=== PATIENT | female | born 1955 | race Caucasian/White ===

== ENCOUNTER → 2018-07-20 | Outpatient (CLI) | payer BC ==
--- NOTE | 2018-07-20 08:17 | RAD ---
EXAM: Chest, 2 views. HISTORY: Respiratory infection. COMPARISON: None. FINDINGS: 2 views the chest are obtained. There is no infiltrate, pleural effusion or pneumothorax. The heart is normal in size. There are suspected bilateral lower lobe atelectasis. IMPRESSION: Suspected bilateral lower lobe atelectasis. No consolidated infiltrate. Electronically signed by: Amber Mcadams MD (07/20/2018 8:14 AM) [facility]
== END | disposition home or self-care (01) ==
LOC: PMG 07:43
PROVIDERS: ATTEND Physician Assistant Medical
DX: J06.9 Acute upper respiratory infection, unspecified (principal)
CPT/HCPCS: 71046

== ENCOUNTER → 2018-08-24 | Outpatient (CLI) | payer BC ==
--- NOTE | 2018-08-24 16:56 | CARD ---
MR#: [id number] Date of Study: 08/24/2018 Ordering Physician: TYSON CARRION, Referring Physician: TYSON CARRION, Tech: Celine Payne APPROVED REPORT EXAM: Two-dimensional and M-mode echocardiogram with Doppler and color Doppler. Other Information Quality : AverageHR: 55bpm Technically limited study due to body habitus. INDICATION Congestive Heart Failure RISK FACTORS Hypertension Hyperlipidemia Diabetes 2D DIMENSIONS RVDd3.5 (2.9-3.5cm)Left Atrium(2D)4.6 (1.6-4.0cm) IVSd1.6 (0.7-1.1cm)Aortic Root(2D)3.4 (2.0-3.7cm) LVDd6.2 (3.9-5.9cm)LVOT Diameter2.3 (1.8-2.4cm) PWd1.5 (0.7-1.1cm)LVDs4.0 (2.5-4.0cm) FS (%) 35.7 %SV123.9 ml LVEF(%)64.2 (>50%) Aortic Valve AoV Peak Luis Manuel.179.9cm/sAoV VTI46.7cm AO Peak GR.12.9mmHgLVOT Peak Luis Manuel.130.6cm/s LVOT VTI 29.52cmAO Mean GR.8mmHg LONI (VMAX)2.01kv7FQJ (VTI)2.56cm2 Mitral Valve MV E Buynteqx39.3cm/sMV DECEL SYTF804hj MV A Urmgjprj644.2cm/sE/A Ratio0.7 Pulmonary Valve PV Peak Wibcjczg058.3cm/sPV Peak Grad.5mmHg Tricuspid Valve TR P. Vjhqqoyb476mx/sRAP TGBZFHPT8woZa TR Peak Gr.41icTkSBLL59ivEf Pulmonary Vein S1 Dfgnshni28.7cm/sD2 Ieqeohtv83.2cm/s LEFT VENTRICLE The left ventricle is normal size. There is moderate concentric left ventricular hypertrophy. The lef t ventricular systolic function is normal and the ejection fraction is within normal range. The Eject ion Fraction is 50%. There is normal LV segmental wall motion. Transmitral Doppler flow pattern is Gr gucci I-abnormal relaxation pattern. RIGHT VENTRICLE The right ventricle is normal size. The right ventricle is mildly hypertrophied. The right ventricula r systolic function is normal. ATRIA The left atrium is borderline dilated. The right atrium is borderline dilated. The interatrial septum is intact with no evidence for an atrial septal defect or patent foramen ovale as noted on 2-D or Do ppler imaging. AORTIC VALVE The aortic valve is normal in structure and function. Doppler and Color Flow revealed no significant aortic regurgitation. There is no significant aortic valvular stenosis. MITRAL VALVE The mitral valve is normal in structure and function. There is no evidence of mitral valve prolapse. There is no mitral valve stenosis. Doppler and Color-flow revealed trace mitral regurgitation. TRICUSPID VALVE The tricuspid valve is not well visualized. Doppler and Color Flow revealed no tricuspid valve regurg itation noted. There is no tricuspid valve stenosis. PULMONIC VALVE The pulmonic valve is not well visualized. Doppler and Color Flow revealed trace pulmonic valvular re gurgitation. GREAT VESSELS The aortic root is normal in size. The IVC is normal in size and collapses >50% with inspiration. PERICARDIAL EFFUSION There is no evidence of significant pericardial effusion. Critical Notification Critical Value: No <Conclusion> The left ventricular systolic function is normal and the ejection fraction is within normal range. Th e Ejection Fraction is 50%. There is normal LV segmental wall motion. Signed by : Melecio Ruiz, Electronically Approved : 08/24/2018 16:56:28
== END | disposition home or self-care (01) ==
LOC: ECHO 12:40
PROVIDERS: ATTEND Physician Assistant Medical
DX: I11.9 Hypertensive heart disease without heart failure (principal); E11.9 Type 2 diabetes mellitus without complications; E78.5 Hyperlipidemia, unspecified
CPT/HCPCS: 93306

== ENCOUNTER 2019-08-09 16:27 | Emergency (ER) | payer BC ==
[~2019-08-09] VITALS: Ht 182.9 cm; Wt 156.2 kg
[2019-08-09] MEDS ORDERED: IV NORMAL SALINE 1,000ML 1,000 ML IV ONE (17:15)
--- NOTE | 2019-08-09 17:21 | PHYS DOC ---
Past History Past Medical History: Depression, High Cholesterol, Hypertension (KALPANA DUQUE DO) Past Surgical History: (KALPANA DUQUE DO) Alcohol Use: None (KALPANA DUQUE DO) General Adult EDM: Chief Complaint: DIZZY/LIGHT HEADED HPI: HPI: Patient is a 64-year-old female who has a history of diabetes and hypertension presented to ER today for evaluation of dizziness with rapid heart rate. Patient says she has been doing okay until about 10:00 this morning she started feeling dizzy, the dizziness got worse whenever she walks or an upright position. Patient denies any numbness or weakness anywhere. Patient denies any headache, no trouble with memory or speaking. Patient denies any head injury, no blurry vision. Patient says she has been having some upper respiratory problem recently with sinus congestion especially in the morning. Patient has no history of stroke in the past, no history of blood clot disorder, no history of coronary disease. Patient denies any recent travel or operation. Patient denies any fever, no cough, no known exposure to anybody who tested positive for COVID-19. Patient denies any other abdominal pain, no nausea vomiting. (KALPANA DUQUE DO) Review of Systems: Review of Systems: Constitutional: Denies fever or chills Eyes: Denies change in visual acuity HENT: Denies nasal congestion or sore throat Respiratory: Denies cough or shortness of breath Cardiovascular: Denies chest pain or edema GI: Denies abdominal pain, nausea, vomiting, bloody stools or diarrhea : Denies dysuria Musculoskeletal: Denies back pain or joint pain Integument: Denies rash Neurologic: Denies headache, focal weakness or sensory changes. Positive for rapid heart rate with dizziness Endocrine: Denies polyuria or polydipsia Lymphatic: Denies swollen glands Psychiatric: Denies depression or anxiety (KALPANA DUQUE DO) Heart Score: Risk Factors: Risk Factors: DM, Current or recent (<one month) smoker, HTN, HLP, family history of CAD, obesity. Risk Scores: Score 0 - 3: 2.5% MACE over next 6 weeks - Discharge Home Score 4 - 6: 20.3% MACE over next 6 weeks - Admit for Clinical Observation Score 7 - 10: 72.7% MACE over next 6 weeks - Early Invasive Strategies (KALPANA DUQUE DO) Current Medications: Current Meds: Current Medications Medications (Trade) Dose Ordered Sig/Alma Start Time Stop Time Status Last Admin Dose Admin Sodium Chloride 1,000 ml @ 1,000 mls/hr 1X ONCE 08/09/19 17:15 08/09/19 18:14 08/09/19 17:15 1,000 MLS/HR (KALPANA DUQUE DO) Allergies: Allergies: Allergies Coded Allergies Type Severity Reaction Last Updated Verified No Known Drug Allergies 08/09/19 No (KALPANA DUQUE DO) Physical Exam: PE: Constitutional: Well developed, well nourished, no acute distress, non-toxic appearance. [] HENT: Normocephalic, atraumatic, bilateral external ears normal, oropharynx moist, no oral exudates, nose normal. [] Eyes: PERRLA, EOMI, conjunctiva normal, no discharge. [] Neck: Normal range of motion, no tenderness, supple, no stridor. [] Cardiovascular:Heart rate regular rhythm, no murmur [] Lungs & Thorax: Bilateral breath sounds clear to auscultation [] Abdomen: Bowel sounds normal, soft, no tenderness, no masses, no pulsatile masses. [] Skin: Warm, dry, no erythema, no rash. [] Back: No tenderness, no CVA tenderness. [] Extremities: No tenderness, no cyanosis, no clubbing, ROM intact, no edema. [] Neurologic: Alert and oriented X 3, normal motor function, normal sensory function, no focal deficits noted. NIHSS IS ZERO. Psychologic: Affect normal, judgement normal, mood normal. [] (KALPANA DUQUE DO) PE: In general patient is in mild distress. Heart is regular rate and rhythm. Blood pressure is controlled. Lungs were clear to auscultation. Patient had a non-focal negative neurological exam. Patient mistreated a steady gait. No acute interval changes from Dr. Kalpana Duque's assessment (MARY JO NEWTON DO) Current Patient Data: Labs: Laboratory Tests Test 08/09/19 16:41 08/09/19 17:10 Glucose (Fingerstick) 188 mg/dL White Blood Count 6.5 x10^3/uL Red Blood Count 3.81 x10^6/uL Hemoglobin 12.5 g/dL Hematocrit 38.0 % Mean Corpuscular Volume 100 fL Mean Corpuscular Hemoglobin 33 pg Mean Corpuscular Hemoglobin Concent 33 g/dL Red Cell Distribution Width 15.7 % Platelet Count 253 x10^3/uL Neutrophils (%) (Auto) 76 % Lymphocytes (%) (Auto) 15 % Monocytes (%) (Auto) 6 % Eosinophils (%) (Auto) 3 % Basophils (%) (Auto) 1 % Neutrophils # (Auto) 4.9 x10^3uL Lymphocytes # (Auto) 1.0 x10^3/uL Monocytes # (Auto) 0.4 x10^3/uL Eosinophils # (Auto) 0.2 x10^3/uL Basophils # (Auto) 0.0 x10^3/uL Sodium Level 140 mmol/L Potassium Level 3.9 mmol/L Chloride Level 103 mmol/L Carbon Dioxide Level 27 mmol/L Anion Gap 10 Blood Urea Nitrogen 24 mg/dL Creatinine 1.0 mg/dL Estimated GFR (Cockcroft-Gault) 56.2 BUN/Creatinine Ratio 24 Glucose Level 211 mg/dL Calcium Level 8.9 mg/dL Magnesium Level Pending Total Bilirubin Pending Aspartate Amino Transf (AST/SGOT) Pending Alanine Aminotransferase (ALT/SGPT) Pending Alkaline Phosphatase Pending Troponin I Quantitative 0.031 ng/mL SS-Vcn-X-Type Natriuretic Peptide Pending Total Protein Pending Albumin Pending Albumin/Globulin Ratio Pending Current Medications Medications (Trade) Dose Ordered Sig/Alma Route PRN Reason Start Time Stop Time Status Last Admin Dose Admin Sodium Chloride 1,000 ml @ 1,000 mls/hr 1X ONCE IV 08/09/19 17:15 08/09/19 18:14 08/09/19 17:15 Meclizine HCl (Antivert) 25 mg PRN Q6HRS PRN PO DIZZINESS 08/09/19 17:30 Laboratory Tests Test 08/09/19 16:41 Glucose (Fingerstick) 188 mg/dL (70-99) H Vital Signs: Vital Signs Date Time Temp Pulse Resp B/P (MAP) Pulse Ox O2 Delivery O2 Flow Rate FiO2 08/09/19 16:41 97.9 121 16 165/114 (131) 97 Room Air (KALPANA DUQUE DO) EKG: EKG: EKG was done 1644, heart rate 121 beats per minutes, sinus rhythm. No STEMI. (KALPANA DUQUE DO) Radiology/Procedures: Radiology/Procedures: (KALPANA DUQUE DO) Radiology/Procedures: [address] [address] IMAGING REPORT Signed PATIENT: LONI FERGUSON ACCOUNT: [id number] : 1955 LOCATION: ER AGE: 64 SEX: F EXAM STATUS: REG ER ORD. PHYSICIAN: KALPANA DUQUE DO REASON: dizziness PROCEDURE: CT HEAD WO CONTRAST CT scan of the head without contrast 08/09/2019 Clinical History: Dizziness. Technique: Unenhanced, contiguous, 5 mm axial sections were obtained through the head. One or more of the following individualized dose reduction techniques were utilized for this study: 1. Automated exposure control. 2. Adjustment of the mA and/or kV according to patient size. 3. Use of iterative reconstruction technique. Findings: No previous studies are available for comparison. There is generalized parenchymal atrophy. Areas of decreased attenuation are seen within the periventricular and subcortical white matter of both cerebral hemispheres consistent with areas of small vessel ischemic disease. No acute parenchymal abnormality is seen. No extra-axial fluid collection is noted. No skull fracture is seen. Near complete opacification right maxillary sinus due to thickening is noted. Impression: No acute intracranial abnormality is seen. Electronically signed by: Dannie Adam MD (08/09/2019 5:49 PM) [id number] DICTATED AND SIGNED BY: DANNIE ADAM MD DATE: 08/09/19 1749 CC: KALPANA DUQUE DO; TYSON CARRION ~ [address] [address] IMAGING REPORT Signed PATIENT: LONI FERGUSON ACCOUNT: [id number] : 1955 LOCATION: ER AGE: 64 SEX: F EXAM STATUS: REG ER ORD. PHYSICIAN: KALPANA DUQUE DO REASON: SOA, PALPITATION PROCEDURE: PORTABLE CHEST 1V Exam: Chest one view INDICATION: Short of air, palpitations TECHNIQUE: Frontal view of the chest Comparisons: 07/20/2018 FINDINGS: The cardiomediastinal silhouette and pulmonary vessels are within normal limits. The lung and pleural spaces are clear. IMPRESSION: No acute cardiopulmonary process. Electronically signed by: Sara Perez MD (08/09/2019 6:30 PM) [id number] DICTATED AND SIGNED BY: SARA PEREZ MD DATE: 08/09/19 1830 CC: KALPANA DUQUE DO; TYSON CARRION; MARY JO NEWTON DO ~ (MARY JO NEWTON DO) Course & Med Decision Making: Course & Med Decision Making Pertinent Labs and Imaging studies reviewed. (See chart for details) checked out to Dr. Newton at shift change pending CT scan of head and reevaluation. (KALPANA DUQUE DO) Course & Med Decision Making 1800 Care of patient assumed by me at shift change. 2044 patient has been reassessed multiple times. She was able to ambulate without difficulty. Systolic blood pressure down to 151. Patient is able to stand and walk and does not have any focal deficits or lateralizing signs. Work-up was unremarkable and the etiology of her dizziness is unclear but no dangerous etiology found. She has equal offal baler strength no signs of an obvious stroke. CT scan head and chest x-ray were unremarkable. Abnormal lab included elevated blood sugar. Patient will call and see your doctor right away and f ollow-up. A prescription for meclizine given. Differential diagnosis included stroke, electrolyte disturbance, blood sugar problem, labyrinthitis, anemia, cardiac etiology. Patient is any sinus rhythm on the monitor. EKGs were unremarkable (MARY JO NEWTON DO) Dragon Disclaimer: Dragon Disclaimer: This electronic medical record was generated, in whole or in part, using a voice recognition dictation system. (KALPANA DUQUE DO) Departure Departure: Impression: Primary Impression: Dizziness Additional Impressions: Elevated blood pressure reading Hyperglycemia Disposition: HOME, SELF-CARE Condition: STABLE Referrals: TYSON CARRION (PCP) Patient Instructions: Dizziness, Hyperglycemia, Hypertension Additional Instructions: Take medication as directed, call and see your doctor right away in follow-up. Return if worsen Scripts Meclizine Hcl (MECLIZINE HCL) 25 Mg Tablet 1 TAB PO PRN TID for dizziness, #30 TAB Prov: MARY JO NEWTON DO 08/09/19 NIHSS - ED NIH Stroke Scale: NIH Stroke Scale Response (Comments) Value Level of Consciousness: 0 Alert/Responsive 0 LOC Questions: 0 Answers both correctly 0 Best Gaze: 0 Normal 0 Facial Palsy: 0 Normal, symmetrical 0 Motor - Left Arm 0 No drift 0 Motor - Right Arm 0 No drift 0 Motor - Left Leg 0 No drift 0 Motor: Right Leg 0 No drift 0 Limb Ataxia: 0 Absent 0 Sensory: 0 No loss 0 Best Language: 0 Normal 0 Dysathria: 0 Normal 0 Extinction and Inattention: 0 Normal 0 Total 0 KALPANA DUQUE DO Aug 09, 2019 17:21 MARY JO NEWTON DO Aug 09, 2019 19:37
[2019-08-09 17:26] LABS: BASO % 1 % (0-3); EOS # 0.2 x10^3/uL (0.0-0.7); EOS % 3 % (0-3); HEMOGLOBIN 12.5 g/dL (12.0-15.5); LYMPH % 15 % (24-48); MEAN CORPUSCULAR HEMOGLOBIN 33 pg (25-35); MEAN CORPUSCULAR HGB CONC 33 g/dL (31-37); MEAN CORPUSCULAR VOLUME 100 fL (79-100); MONO # 0.4 x10^3/uL (0.0-1.1); MONO % 6 % (0-9); NEUT # 4.9 x10^3uL (1.8-7.7); NEUT % 76 % (31-73); PLATELET COUNT 253 x10^3/uL (140-400); RED BLOOD COUNT 3.81 x10^6/uL (3.50-5.40); RED CELL DISTRIBUTION WIDTH 15.7 % (11.5-14.5); WHITE BLOOD COUNT 6.5 x10^3/uL (4.0-11.0)
[2019-08-09] MEDS ORDERED: MECLIZINE 12.5 MG TABLET. PO PRN (17:30)
[2019-08-09 17:35] LABS: CALCIUM 8.9 mg/dL (8.5-10.1); GFR 56.2; POTASSIUM 3.9 mmol/L (3.5-5.1)
[2019-08-09 17:47] LABS: ALBUMIN 3.1 g/dL (3.4-5.0); ALBUMIN/GLOBULIN RATIO 1.1 (1.0-1.7); MAGNESIUM 1.8 mg/dL (1.8-2.4); TOTAL BILIRUBIN 0.4 mg/dL (0.2-1.0)
--- NOTE | 2019-08-09 17:49 | EKG ---
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
--- NOTE | 2019-08-09 17:49 | EKG ---
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
--- NOTE | 2019-08-09 17:52 | RAD ---
CT scan of the head without contrast 08/09/2019 Clinical History: Dizziness. Technique: Unenhanced, contiguous, 5 mm axial sections were obtained through the head. One or more of the following individualized dose reduction techniques were utilized for this study: 1. Automated exposure control. 2. Adjustment of the mA and/or kV according to patient size. 3. Use of iterative reconstruction technique. Findings: No previous studies are available for comparison. There is generalized parenchymal atrophy. Areas of decreased attenuation are seen within the periventricular and subcortical white matter of both cerebral hemispheres consistent with areas of small vessel ischemic disease. No acute parenchymal abnormality is seen. No extra-axial fluid collection is noted. No skull fracture is seen. Near complete opacification right maxillary sinus due to thickening is noted. Impression: No acute intracranial abnormality is seen. Electronically signed by: Dannie Adam MD (08/09/2019 5:49 PM) [id number]
--- NOTE | 2019-08-09 18:34 | RAD ---
Exam: Chest one view INDICATION: Short of air, palpitations TECHNIQUE: Frontal view of the chest Comparisons: 07/20/2018 FINDINGS: The cardiomediastinal silhouette and pulmonary vessels are within normal limits. The lung and pleural spaces are clear. IMPRESSION: No acute cardiopulmonary process. Electronically signed by: Sara Smith MD (08/09/2019 6:30 PM) [id number]
[2019-08-09 19:08] VITALS: BP 120/67
[2019-08-09 19:47] LABS: BILIRUBIN,URINE NEG (NEG); CLARITY,URINE CLEAR; COLOR,URINE YELLOW; GLUCOSE,URINE 100 mg/dL (NEG)
[2019-08-09 19:48] LABS: NITRITE,URINE NEG (NEG); UROBILINOGEN,URINE 0.2 mg/dL (0.2 mg/dL)
[2019-08-09 19:50] LABS: BACTERIA,URINE FEW /HPF (0-FEW); RBC,URINE 0 /HPF (0-2); SQUAMOUS EPITHELIAL CELL,UR MOD /LPF; WBC,URINE 0 /HPF (0-4)
[2019-08-09] MEDS ORDERED: MECL-75 PO (20:53)
== END 2019-08-09 20:58 | disposition home or self-care (01) ==
LOC: ER 16:27
DX: R42 Dizziness and giddiness (principal); E11.65 Type 2 diabetes mellitus with hyperglycemia; E78.00 Pure hypercholesterolemia, unspecified; I10 Essential (primary) hypertension
CPT/HCPCS: 36415; 70450; 71045; 80053; 81001; 82947; 83735; 83880; 84484; 85025; 85610; 85730; 93005; 96360; 99285-25; J7030

== ENCOUNTER → 2019-09-27 | Outpatient (CLI) | payer BC ==
[~2019-09-27] MED LIST: MECL-75 PO
--- NOTE | 2019-09-27 16:41 | CARD ---
MR#: [id number] Date of Study: 09/27/2019 Ordering Physician: DEVANG LONDON, Referring Physician: DEVANG LONDON, Tech: Celine Payne APPROVED REPORT EXAM: Two-dimensional and M-mode echocardiogram with Doppler and color Doppler. Other Information Quality : FairHR: 120bpm Technically limited study due to body habitus. INDICATION Arrhythmia AFlutter RISK FACTORS Hypertension Hyperlipidemia Diabetes 2D DIMENSIONS RVDd3.2 (2.9-3.5cm)Left Atrium(2D)5.1 (1.6-4.0cm) IVSd1.4 (0.7-1.1cm)Aortic Root(2D)3.3 (2.0-3.7cm) LVDd5.6 (3.9-5.9cm)LVOT Diameter2.1 (1.8-2.4cm) PWd1.3 (0.7-1.1cm)LVDs3.6 (2.5-4.0cm) FS (%) 35.8 %SV101.3 ml LVEF(%)64.7 (>50%) Aortic Valve AoV Peak Luis Manuel.126.7cm/sAoV VTI24.1cm AO Peak GR.6.4mmHgLVOT Peak Luis Manuel.108.7cm/s LVOT VTI 17.55cmAO Mean GR.4mmHg LONI (VMAX)2.22nd7JEF (VTI)2.42cm2 Mitral Valve MV E Gcnxxdme25.0cm/sMV E Peak Gr.5mmHg MV DECEL [id number] A Uwyuyqby44.1cm/s MV E Mean Gr.2mmHgE/A Ratio1.2 Pulmonary Valve PV Peak Bzmvlbsk44.4cm/sPV Peak Grad.3mmHg Tricuspid Valve TR P. Tojkfqzi128og/sRAP HNXEGBYW0xlDl TR Peak Gr.31spKpJZTW08zaMv LEFT VENTRICLE The left ventricle is normal size. There is moderate concentric left ventricular hypertrophy. The lef t ventricular systolic function is mildly diminished. EF 45% Septal motion suggestive of conduction d efect. Otherwise, mild global hypokinesis. Transmitral Doppler flow pattern is Grade II-pseudonormal filling dynamics. RIGHT VENTRICLE The right ventricle is borderline dilated. The right ventricular systolic function is normal. ATRIA The left atrium size is normal. The right atrium size is normal. The interatrial septum is intact wit h no evidence for an atrial septal defect or patent foramen ovale as noted on 2-D or Doppler imaging. AORTIC VALVE The aortic valve is normal in structure and function. Doppler and Color Flow revealed trace aortic re gurgitation. There is no significant aortic valvular stenosis. MITRAL VALVE The mitral valve is normal in structure and function. There is no evidence of mitral valve prolapse. There is no mitral valve stenosis. Doppler and Color-flow revealed trace mitral regurgitation. TRICUSPID VALVE The tricuspid valve is not well visualized. Doppler and Color Flow revealed trace tricuspid regurgita tion with an estimated PAP of 41 mmHg. There is no tricuspid valve stenosis. PULMONIC VALVE The pulmonic valve is not well visualized. Doppler and Color Flow revealed trace pulmonic valvular re gurgitation. GREAT VESSELS The aortic root is normal in size. The IVC is normal in size and collapses >50% with inspiration. PERICARDIAL EFFUSION There is no evidence of significant pericardial effusion. Critical Notification Critical Value: No <Conclusion> The left ventricular systolic function is mildly diminished. EF 45% Septal motion suggestive of conduction defect. Otherwise, mild global hypokinesis. Doppler and Color Flow revealed trace tricuspid regurgitation with an estimated PAP of 41 mmHg. Technically difficult study Signed by : Melecio Ruiz, Electronically Approved : 09/27/2019 16:41:09
== END | disposition home or self-care (01) ==
LOC: ECHO 14:36
PROVIDERS: ATTEND Internal Medicine Cardiovascular Disease
DX: I51.7 Cardiomegaly (principal); I48.92 Unspecified atrial flutter
CPT/HCPCS: 93306

== ENCOUNTER 2020-01-27 12:00 | Emergency (ER) | payer BC ==
[~2020-01-27] VITALS: Ht 175.3 cm; Wt 156.4 kg
[2020-01-27 12:10] VITALS: BP 164/75
[2020-01-27] MEDS: HYDROcodone/APAP 7.5/325MG 1 TAB TABLET PO ONE (12:56)
--- NOTE | 2020-01-27 13:10 | RAD ---
Examination: HUMERUS LEFT, FOREARM LEFT History: Reason: fall /pain Comparison/Correlation: None Findings: 3 images of the left humerus and 2 images of the left forearm were obtained. Transverse displaced fractures of the left humeral neck are present. Longitudinal fracture through the greater tuberosity is also present. Partially inferiorly subluxed left humeral head is noted in relation to the acromion. Transverse fractures through the distal radial metaphysis noted. Extension of fracture into the distal radial epiphysis also noted. Mild displacement of fracture is noted. No suspicious findings involving the elbow joint region. No findings to suggest joint effusion although positioning can limit assessment. Impression: Left humeral neck and head fractures. Inferior partial subluxation of the left humeral head in relation to the glenoid. Distal radial fractures with intra-articular extension. Electronically signed by: Kush Junior MD (01/27/2020 1:07 PM) FADY
[2020-01-27] MEDS ORDERED: HYDR-3165 PO (14:30)
--- NOTE | 2020-01-27 14:31 | PHYS DOC ---
Past History Past Medical History: A-Fib, Depression, Diabetes, High Cholesterol, Hypertension Past Surgical History: Alcohol Use: None General Adult EDM: Chief Complaint: MECHANICAL FALL HPI: HPI: 64-year-old female coming in for left arm pain after mechanical fall 2 hours prior to arrival. Was chasing her dogs outside and fell on the sidewalk by tripping over the dog fell onto the ground directly onto her left side. No head injuries or LOC. She is right-handed Review of Systems: Review of Systems: Constitutional: Denies fever or chills Eyes: Denies change in visual acuity HENT: Denies nasal congestion or sore throat Respiratory: Denies cough or shortness of breath Cardiovascular: Denies chest pain or edema GI: Denies abdominal pain, nausea, vomiting, bloody stools or diarrhea : Denies dysuria Musculoskeletal: Denies back pain or joint pain tenderness in left upper humer us and left distal forearm Integument: Denies rash Neurologic: Denies headache, focal weakness or sensory changes Endocrine: Denies polyuria or polydipsia Lymphatic: Denies swollen glands Psychiatric: Denies depression or anxiety Heart Score: Risk Factors: Risk Factors: DM, Current or recent (<one month) smoker, HTN, HLP, family history of CAD, obesity. Risk Scores: Score 0 - 3: 2.5% MACE over next 6 weeks - Discharge Home Score 4 - 6: 20.3% MACE over next 6 weeks - Admit for Clinical Observation Score 7 - 10: 72.7% MACE over next 6 weeks - Early Invasive Strategies Current Medications: Current Meds: Current Medications Medications (Trade) Dose Ordered Sig/Alma Start Time Stop Time Status Last Admin Dose Admin Acetaminophen/ Hydrocodone Bitart (Lortab 7.5/325) 1 tab 1X ONCE 01/27/20 13:00 01/27/20 13:01 DC 01/27/20 12:56 1 TAB Allergies: Allergies: Allergies Coded Allergies Type Severity Reaction Last Updated Verified No Known Drug Allergies 08/09/19 No Physical Exam: PE: Constitutional: Well developed, well nourished, no acute distress, non-toxic appearance. [] HENT: Normocephalic, atraumatic, bilateral external ears normal, oropharynx moist, no oral exudates, nose normal. [] Eyes: PERRLA, EOMI, conjunctiva normal, no discharge. [] Neck: Normal range of motion, no tenderness, supple, no stridor. [] Cardiovascular:Heart rate regular rhythm, no murmur [] Lungs & Thorax: Bilateral breath sounds clear to auscultation [] Abdomen: Bowel sounds normal, soft, no tenderness, no masses, no pulsatile masses. [] Skin: Warm, dry, no erythema, no rash. [] Back: No tenderness, no CVA tenderness. [] Extremities: No tenderness, no cyanosis, no clubbing, ROM intact, no edema. [] Tenderness to left upper extremity and left distal forearm, neurovascularly intact distal to injuries Neurologic: Alert and oriented X 3, normal motor function, normal sensory function, no focal deficits noted. [] Psychologic: Affect normal, judgement normal, mood normal. [] Current Patient Data: Vital Signs: Vital Signs Date Time Temp Pulse Resp B/P (MAP) Pulse Ox O2 Delivery O2 Flow Rate FiO2 01/27/20 12:56 16 98 01/27/20 12:10 97.9 67 164/75 (104) Room Air EKG: EKG: [] Radiology/Procedures: Radiology/Procedures: Examination: HUMERUS LEFT, FOREARM LEFT History: Reason: fall /pain Comparison/Correlation: None Findings: 3 images of the left humerus and 2 images of the left forearm were obtained. Transverse displaced fractures of the left humeral neck are present. Longitudinal fracture through the greater tuberosity is also present. Partially inferiorly subluxed left humeral head is noted in relation to the acromion. Transverse fractures through the distal radial metaphysis noted. Extension of fracture into the distal radial epiphysis also noted. Mild displacement of fracture is noted. No suspicious findings involving the elbow joint region. No findings to suggest joint effusion although positioning can limit assessment. Impression: Left humeral neck and head fractures. Inferior partial subluxation of the left humeral head in relation to the glenoid. Distal radial fractures with intra-articular extension.[] Course & Med Decision Making: Course & Med Decision Making Pertinent Labs and Imaging studies reviewed. (See chart for details) Splint placed and sling, given information for orthopedic follow-up. [] Dragon Disclaimer: Dragon Disclaimer: This electronic medical record was generated, in whole or in part, using a voice recognition dictation system. Departure Departure: Impression: Primary Impression: Fall Additional Impressions: Closed fracture of left proximal humerus Fracture of left distal radius Disposition: 01 DC HOME SELF CARE/HOMELESS Condition: STABLE Referrals: TYSON CARRION (PCP) Patient Instructions: Radial Fracture Additional Instructions: Follow-up with [facility]. Take pain medications as needed with a stool softener such as docusate or MiraLAX Scripts Hydrocodone Bit/Acetaminophen (NORCO 5-325 TABLET) 1 Each Tablet 1 TAB PO PRN Q6HRS PRN for PAIN for 5 Days, #20 TAB 0 Refills Prov: WYATT BROWNE MD 01/27/20 WYATT BROWNE MD Jan 27, 2020 14:31
== END 2020-01-27 14:35 | disposition home or self-care (01) ==
LOC: ER 12:00
DX: S42.202A Unspecified fracture of upper end of left humerus, initial encounter for closed fracture (principal); S52.502A Unspecified fracture of the lower end of left radius, initial encounter for closed fracture; I48.91 Unspecified atrial fibrillation; E11.9 Type 2 diabetes mellitus without complications; E78.00 Pure hypercholesterolemia, unspecified; I10 Essential (primary) hypertension; W01.0XXA Fall on same level from slipping, tripping and stumbling without subsequent striking against object, initial encounter; Y93.89 Activity, other specified; Y92.480 Sidewalk as the place of occurrence of the external cause; Y99.8 Other external cause status
CPT/HCPCS: 29125; 73060; 73090; 99284